=== PATIENT | male | born 1960 | race Caucasian/White ===

== ENCOUNTER 2016-12-24 09:38 | Day surgery (SDC) | payer OTHER, BC ==
[2016-12-24] MEDS ORDERED: D5 LR 1000 ML 1,000 ML IV ONE (09:53)
[2016-12-24] MEDS ORDERED: DIPRIVAN VIAL 20 ML ONE (11:04)
[2016-12-24 13:55] VITALS: BP 115/65
== END 2016-12-24 11:37 | disposition home or self-care (01) ==
LOC: SURG1 09:38
PROVIDERS: ATTEND Internal Medicine Gastroenterology
PROC: 0D757ZZ Dilation of Esophagus, Via Natural or Artificial Opening (ICD-10-PCS; principal; 2016-12-24 13:00)
PROC: 0DB88ZX Excision of Small Intestine, Via Natural or Artificial Opening Endoscopic, Diagnostic (ICD-10-PCS; principal; 2016-12-24 13:00)
PROC: 0DJ08ZZ Inspection of Upper Intestinal Tract, Via Natural or Artificial Opening Endoscopic (ICD-10-PCS; principal; 2016-12-24 13:00)
PROC: 0DB68ZX Excision of Stomach, Via Natural or Artificial Opening Endoscopic, Diagnostic (ICD-10-PCS; principal; 2016-12-24 13:00)
DX: R13.19 Other dysphagia (principal); K21.9 Gastro-esophageal reflux disease without esophagitis; K29.60 Other gastritis without bleeding; Z85.818 Personal history of malignant neoplasm of other sites of lip, oral cavity, and pharynx
CPT/HCPCS: A4217; J3490; J7120

== ENCOUNTER 2021-09-12 10:37 | Observation (INO) ==
[2021-09-12] MEDS ORDERED: NS 1,000 ML IV 1,000 ML IV ONE ×2 (11:17→13:51)
--- NOTE | 2021-09-12 11:17 | DR.GIBLEED ---
HPI Time Seen Time Seen by Provider: 09/12/21 11:04 Primary Care Physician Primary Care Physician: JACQUES HPI Comment HPI Comment: HAD CONONOSCO[PY YESTERDAY WITH POLYPS REMOVED. DEVELOPED BLEED FROM RECTUM 7 HOURS AGO AND CONTINUED PASSING CLOTS, HAS NOT CALLED DR MACIEL'S OFFIVE BEFORE COMING TO ER. IS ON BLOOD THINNERS AND DID NOT STOP USING THEM 4 DAYS PRIOR TO PROCEDURE. Complaints Chief Complaint:: DID COLONSCOPY ON PT AT [facility] YESTERDAY 09/11/21 AND REMOVED POLPYS.THIS MORNING AROUND 0200 PATIENT WENT TO [facility] AND TRIED TO HAVE BOWEL MOVENT AND FELT A CLOT COME OUT AND HAD SEVERAL DISCHARGE OF CLOTS. PATIENT STATES HE HAS HAD 8 MOVEMENTS OF PASSING BLOOD, NO STOOL NOTED EITHER TIMES. HAVE NOT CALLED 'S OFFICE THIS MORNING AND FOLLOW UP IS September. COVID-19 Coronavirus risk:travel/contact w/high risk person: No Has patient experienced Coronavirus symptoms: No Source History Provided: Patient Mode of Arrival Mode of Arrival: Ambulatory Timing Onset of Chief Complaint: 09/12/21 Quality Vomitus: None Stools: Bright Red Blood PMH PMH Past Medical History: Yes Past Medical History: Arthritis Past Medical History Comment: BLADDER CA,THROAT CA, Past Surgical History: Yes Surgical History: Cholecystectomy Past Surgical History Comment: [id number] Family History History of Family Medical Conditions: Yes Family Medical History: Cancer and Hypertension Social History Does patient currently use any type of tobacco product: No Have you used tobacco products in the last 12 months: No Type of Tobacco Use: None Does any household member use tobacco: No Alcohol Use: None Do you use any recreational Drugs:: No Lives With: Spouse Lives Where: Home Travel Risk Coronavirus risk:travel/contact w/high risk person: No Has patient experienced Coronavirus symptoms: No Infectious screening In the last 2 months have you had wt loss of >10#?: NO Have you had fever, night sweats or hemotysis?: No Have you traveled outside the country in the last 6 months?: No Isolation: Standard ROS Review of Systems Constitutional: Weakness Eyes: No Symptoms Reported ENTM: No Symptoms Reported Respiratoy: No Symptoms Reported Cardiovascular: No Symptoms Reported Gastrointestinal/Abdominal: No Symptoms Reported and Other (LOWER GI BLEEDING WITH CLOTTING ) Genitourinary: No Symptoms Reported Neurological: No Symptoms Reported Musculoskeletal: No Symptoms Reported Integumentary: No Symptoms Reported Hematologic/Lymphatic: No Symptoms Reported Endocrine: No Symptoms Reported Psychiatric: No Symptoms Reported All Other Systems: Reviewed and Negative PE Vital Signs Vitals: Pulse Rate 74 Respiratory Rate 18 Blood Pressure [Left Arm] 90/50 Blood Pressure 106/63 O2 Sat by Pulse Oximetry 99 General Limitations: No Limitations General Appearance: Alert and In No Apparent Distress Head Head Exam: Normal Inspection Eyes Eye exam: Normal Appearance ENT ENT Exam: Normal Exam Neck Neck Exam: Normal Inspection Chest Chest Inspection: Normal Inspection Respiratory Respiratory Exam: Normal Lung Sounds Bilat Respiratory Exam: Bilateral: Clear to Auscultation Cardiovascular Cardiovascular Exam: Regular Rate and Normal Rhythm Abdominal Exam Abdominal Exam: Normal Inspection, Normal Bowel Sounds and Soft Rectal Rectal Exam: Deferred Extremities Extremities Exam: Normal Inspection Back Back Exam: Normal Inspection Neurologic Neurological Exam: Alert and Oriented X3 Psychiatric Psychiatric Exam: Normal Affect and Normal Mood Skin Skin Exam: Warm, Dry, Intact and Normal Color DIFFERENTIAL DIAGNOSIS Additional Information Obtained Additional Findings:: LOWER GI BLEED COURSE Treatment Treatment: LOWER GI BLEED S/P COLONOSCOPY YESTERDAY,HYPOTENSION,POSITIVE FOR COVID 19 TODAY IN ER.THIS PATIENT WAS GIVEN ONE LITER BOLUS OF NACL IN ER AND WAS STARTED ON ANOTHER LITER BOLUS AFTER TALKING TO DR MACIEL(GI), HE WILL CONSULT ON THE PATIENTTODAY AND REQUESTED THAT WE REFER TO OBSERVATIION TO IP COUNSEL PHYSICIAN AND HE WILL BE IN LATER TO CONSULT ON THE PATIENT. HE STATED TO TYPE AND TRANS FUSE ONE UNIT OF PRBC'S IF HGB DROPS BELOW 9.6. THECK H/H [id number]. NACL AT 125CC/HR. CLEAR LIQUID DIET. SPOKE TO DR LONG THE IP COUNSEL DOCTER AND SHE ACCEPTED THE PATIENT TO OBSERVATION FOR LOWER GI BLEED. AND HYPOTENSION. PATIENT WAS TOLD OF THE PLAN TO REFER HIM TO OBSERVATION FOR FURTHER EVALUATION AND TREATMENT AND WAS AGGREABLE TO THE PLAN. ROR Labs Reviewed Laboratory Results Reviewed?: Yes Result Diagrams: 09/12/21 10:59 09/12/21 10:59 Laboratory: WBC 9.7 X10^3/uL (3.6-10.0) 09/12/21 10:59 RBC 3.94 X10^6/uL (4.7-6.0) L 09/12/21 10:59 Hgb 12.9 g/dL (13.5-18.0) L 09/12/21 10:59 Hct 37.0 % (42.0-54.0) L 09/12/21 10:59 MCV 93.9 fL (80.0-100.0) 09/12/21 10:59 MCH 32.7 pg (27.0-34.0) 09/12/21 10:59 MCHC 34.9 g/dL (33.0-35.0) 09/12/21 10:59 RDW 14.9 % (11.6-16.5) 09/12/21 10:59 Plt Count 189 X10^3/uL (150.0-450.0) 09/12/21 10:59 MPV 10.1 fL (7.4-11.0) 09/12/21 10:59 Neut % (Auto) 77.1 % (42.0-75.0) H 09/12/21 10:59 Lymph % (Auto) 12.2 % (21.0-51.0) L 09/12/21 10:59 [place] % (Auto) 8.5 % (0.0-13.0) 09/12/21 10:59 Eos % (Auto) 1.8 % (0.9-2.9) 09/12/21 10:59 Baso % (Auto) 0.4 % (0.2-1.0) 09/12/21 10:59 Neut # (Auto) 7.5 x10^3/uL (2.2-4.8) H 09/12/21 10:59 Lymph # (Auto) 1.2 X10^3/uL (1.3-2.9) L 09/12/21 10:59 [place] # (Auto) 0.8 x10^3/uL (0.3-0.8) 09/12/21 10:59 Eos # (Auto) 0.2 x10^3/uL (0.0-0.2) 09/12/21 10:59 Baso # (Auto) 0.0 X10^3/uL (0.0-0.1) 09/12/21 10:59 Absolute Nucleated RBC 0.1 /100WBC 09/12/21 10:59 PT 14.6 SECONDS (11.8-14.3) 09/12/21 10:59 INR Target Range - 09/12/21 10:59 INR 1.19 (0.8-1.3) 09/12/21 10:59 APTT 32.3 SECONDS (22.9-36.5) 09/12/21 10:59 PTT Comment - 09/12/21 10:59 Sodium 139 mmol/L (136-145) 09/12/21 10:59 Corrected Sodium TNP 09/12/21 10:59 Potassium 4.7 mmol/L (3.5-5.1) 09/12/21 10:59 Chloride 104 mmol/L (98-107) 09/12/21 10:59 Carbon Dioxide 27.1 mmol/L (21-32) 09/12/21 10:59 BUN 28 mg/dL (7-18) H 09/12/21 10:59 Creatinine 1.35 mg/dL (0.70-1.30) H 09/12/21 10:59 Est GFR (MDRD) Af Amer > 60 (>60) 09/12/21 10:59 Est GFR (MDRD) Non-Af 57 (>60) L 09/12/21 10:59 Glucose 107 mg/dL (65-99) H 09/12/21 10:59 Calcium 8.0 mg/dL (8.5-10.1) L 09/12/21 10:59 Corrected Calcium TNP 09/12/21 10:59 Total Bilirubin 0.70 mg/dL (0.2-1.0) 09/12/21 10:59 AST 19 Units/L (15-37) 09/12/21 10:59 ALT 30 Units/L (12-78) 09/12/21 10:59 Alkaline Phosphatase 74 Units/L (46-116) 09/12/21 10:59 Total Protein 5.9 g/dL (6.4-8.2) L 09/12/21 10:59 Albumin 3.6 g/dL (3.4-5.0) 09/12/21 10:59 Globulin 2.3 g/dL (2.5-4.5) L 09/12/21 10:59 Albumin/Globulin Ratio 1.6 Ratio (1.1-2.1) 09/12/21 10:59 Stool Description Fob tube 09/12/21 11:50 Stl Occult Blood (IFOB) Positive (NEGATIVE) A 09/12/21 11:50 SARS CoV-2 RNA Rapid JANNETH Positive (NEGATIVE) A 09/12/21 13:50 Blood Type A POSITIVE 09/12/21 14:19 Antibody Screen Negative 09/12/21 14:19 Crossmatch See Detail 09/12/21 14:19 Other Results Comments: HEME POSITIVE STOOL,POSITIVE COVID-19 Opioid Opioid Risk Tool Age ([place] box if 16-45): No History of Preadolescent Sexual Abuse: No Total: 0 Total Score Risk Category: Low Risk Copyright: Chandu HAYS predicting aberrant behaviors Diagnosis Discharge Problem: Gastrointestinal bleeding, lower Hypotension Qualifiers: Hypotension type: hemodialysis-associated hypotension Qualified Code(s): I95.3 - Hypotension of hemodialysis
[2021-09-12] MEDS ORDERED: NS 1,000 ML IV 1,000 ML ONE ×3 (11:27→14:43)
[2021-09-12 11:33] LABS: BASOPHILS % (AUTO) 0.4 % (0.2-1.0); EOSINOPHILS # (AUTO) 0.2 x10^3/uL (0.0-0.2); EOSINOPHILS % (AUTO) 1.8 % (0.9-2.9); HEMOGLOBIN 12.9 g/dL (13.5-18.0); LYMPHOCYTES # (AUTO) 1.2 X10^3/uL (1.3-2.9); LYMPHOCYTES % (AUTO) 12.2 % (21.0-51.0); MEAN CORPUSCULAR HEMOGLOBIN 32.7 pg (27.0-34.0); MEAN CORPUSCULAR HGB CONC 34.9 g/dL (33.0-35.0); MEAN CORPUSCULAR VOLUME 93.9 fL (80.0-100.0); MEAN PLATELET VOLUME 10.1 fL (7.4-11.0); MONOCYTES # (AUTO) 0.8 x10^3/uL (0.3-0.8); MONOCYTES % (AUTO) 8.5 % (0.0-13.0); NEUTROPHILS # (AUTO) 7.5 x10^3/uL (2.2-4.8); NEUTROPHILS % (AUTO) 77.1 % (42.0-75.0); RED BLOOD COUNT 3.94 X10^6/uL (4.7-6.0); RED CELL DISTRIBUTION WIDTH 14.9 % (11.6-16.5); WHITE BLOOD COUNT 9.7 X10^3/uL (3.6-10.0)
[2021-09-12 11:42] LABS: ALANINE AMINOTRANSFERASE 30 Units/L (12-78); ALBUMIN 3.6 g/dL (3.4-5.0); ALKALINE PHOSPHATASE 74 Units/L (46-116); ASPARTATE AMINO TRANSFERASE 19 Units/L (15-37); BLOOD UREA NITROGEN 28 mg/dL (7-18); CARBON DIOXIDE 27.1 mmol/L (21-32); CHLORIDE 104 mmol/L (98-107); CREATININE 1.35 mg/dL (0.70-1.30); SODIUM 139 mmol/L (136-145); TOTAL PROTEIN 5.9 g/dL (6.4-8.2); eGFR NON BLACK RACES 57 (>60)
[2021-09-12] MEDS ORDERED: NS 1,000 ML IV 1,000 ML IV SCH (15:00)
[2021-09-12] MEDS: NS 1,000 ML IV 1,000 ML IV SCH (16:20)
[2021-09-12 16:30] VITALS: BMI 29.7
[2021-09-12] MEDS ORDERED: METHOTREXATE PO SCH (17:00)
[2021-09-12 17:21] LABS: HEMOGLOBIN 9.4 g/dL (13.5-18.0)
[2021-09-12] MEDS ORDERED: NS 500 ML IV 500 ML IV ONE (17:30)
[2021-09-12] MEDS: PROTONIX INJ 40 MG VIAL IVP SCH (20:45)
[2021-09-12] MEDS: KEPPRA TAB 500 MG PO SCH (20:45)
[2021-09-12] MEDS: LIPITOR TAB 80 MG PO SCH (20:45)
[2021-09-12] MEDS: KLONOPIN TAB 1 MG PO SCH (20:45)
[2021-09-12] MEDS: GABAPENTIN ENACARBIL 300 MG PO SCH (20:45)
[2021-09-12] MEDS: COREG TAB 6.25 MG PO SCH (21:39)
[2021-09-12 21:44] LABS: HEMATOCRIT 24.7 % (42.0-54.0); HEMOGLOBIN 8.9 g/dL (13.5-18.0)
[2021-09-13] MEDS: NS 1,000 ML IV 1,000 ML IV SCH ×3 (01:00→16:43)
[2021-09-13] MEDS ORDERED: TYLENOL 325 MG TAB PO PRN (02:32)
[2021-09-13 03:17] LABS: BASOPHILS # (AUTO) 0.1 X10^3/uL (0.0-0.1); BASOPHILS % (AUTO) 0.5 % (0.2-1.0); EOSINOPHILS # (AUTO) 0.1 x10^3/uL (0.0-0.2); EOSINOPHILS % (AUTO) 0.7 % (0.9-2.9); HEMOGLOBIN 10.8 g/dL (13.5-18.0); LYMPHOCYTES # (AUTO) 0.8 X10^3/uL (1.3-2.9); LYMPHOCYTES % (AUTO) 7.4 % (21.0-51.0); MEAN CORPUSCULAR HEMOGLOBIN 31.5 pg (27.0-34.0); MEAN CORPUSCULAR HGB CONC 34.9 g/dL (33.0-35.0); MEAN CORPUSCULAR VOLUME 90.3 fL (80.0-100.0); MEAN PLATELET VOLUME 9.5 fL (7.4-11.0); MONOCYTES # (AUTO) 0.7 x10^3/uL (0.3-0.8); MONOCYTES % (AUTO) 6.7 % (0.0-13.0); NEUTROPHILS # (AUTO) 9.4 x10^3/uL (2.2-4.8); NEUTROPHILS % (AUTO) 84.7 % (42.0-75.0); RED BLOOD COUNT 3.43 X10^6/uL (4.7-6.0); WHITE BLOOD COUNT 11.1 X10^3/uL (3.6-10.0)
[2021-09-13 03:25] LABS: ALANINE AMINOTRANSFERASE 25 Units/L (12-78); ALKALINE PHOSPHATASE 58 Units/L (46-116); ASPARTATE AMINO TRANSFERASE 18 Units/L (15-37); BLOOD UREA NITROGEN 22 mg/dL (7-18); CALCIUM 7.3 mg/dL (8.5-10.1); CARBON DIOXIDE 26.2 mmol/L (21-32); CHLORIDE 109 mmol/L (98-107); COR CA(FOR HYPOALB) 8.1 mg/dL (8.5-10.1); CREATININE 1.08 mg/dL (0.70-1.30); SODIUM 142 mmol/L (136-145); eGFR NON BLACK RACES > 60 (>60)
--- NOTE | 2021-09-13 04:56 | CT ---
HISTORYGI BLEED; RECENT COLONOSCOPYSTUDYABDOMEN/PELVIS WITH CONCOMPARISONNoneTECHNIQUEMultiple axial images of the abdomen and pelvis were obtained from the lung bases to the pubic symphysis after the administration of IV contrast. Dose reduction techniques including Automated Exposure Control (AEC) and adjustment of mA and kV were utilized.FINDINGSThe visualized portions of the lung bases are unremarkable . The liver, spleen, pancreas, kidneys, and adrenal glands are unremarkable in their CT appearance. Post cholecystectomy changes.. No significant mesenteric lymphadenopathy or stranding can be observed. No free fluid or free air is seen within the abdomen. Normal appendix right lower quadrant. No bowel wall thickening or bowel dilatation is present. The colon is unremarkable. Specifically, there is no diverticulosis noted within the sigmoid colon. The urinary bladder is grossly unremarkable. The bony structures are grossly intact. Small fat containing umbilical hernia.IMPRESSIONSmall fat containing umbilical hernia.No acute abdominal or pelvic pathology.Electronically signed by: Bandar Kohler (Sep 13, 2021 04:55:24)
[2021-09-13] MEDS: COREG TAB 6.25 MG PO SCH ×3 (08:09→20:13)
[2021-09-13] MEDS: GABAPENTIN ENACARBIL 300 MG PO SCH ×2 (08:10→21:00)
[2021-09-13] MEDS: EFFEXOR TAB 75 MG (BID DOSING) PO SCH ×2 (08:30→08:42)
[2021-09-13] MEDS: PLAQUENIL PO SCH (08:42)
[2021-09-13] MEDS: FOLIC ACID TAB 1 MG PO SCH (08:42)
[2021-09-13] MEDS: KEPPRA TAB 500 MG PO SCH ×2 (08:42→21:00)
[2021-09-13] MEDS: PROTONIX INJ 40 MG VIAL IVP SCH ×2 (08:43→21:00)
[2021-09-13] MEDS: ROTIGOTINE EXT SCH (08:43)
[2021-09-13] MEDS: SYNTHROID 25 mcg TAB PO SCH (08:43)
[2021-09-13] MEDS ORDERED: PriLOSEC PO SCH (09:00)
[2021-09-13] MEDS ORDERED: HYDROXYCHLOROQUINE SULFATE PO SCH (09:00)
[2021-09-13] MEDS ORDERED: ASPIRIN 81 MG CHEWTAB PO SCH (09:00)
[2021-09-13 11:30] LABS: HEMATOCRIT 30.5 % (42.0-54.0); HEMOGLOBIN 10.8 g/dL (13.5-18.0)
--- NOTE | 2021-09-13 11:38 | DR.H&P ---
H&P History & Physical for Day of: H&P Date: 09/13/21 Chief Complaint Chief Complaint: rectal bleeding Allergies Allergies Allergy/AdvReac Type Severity Reaction Status Date / Time No Known Drug Allergies Allergy Verified 09/12/21 20:54 History of Present Illness History of Present Illness: Mr Morales is a 61y/o male with a hx of CAD, PCI, bladder cancer, Oropharyngeal cancer, HTN, HLD and Psoriatic arthritis presented with blood in his stool. He had a colonoscopy on 09/11/[address] Du. He was found to have internal hemorrrhoids and polyp. Patietn states he started having bloody BMs later that night. He came to the ER the next morning. He denies abdominal pain, nausea or vomiting. He denies fever or chills. He had 2 bloody stools this AM. Patient is on Brilinta and asa, reports stopping it 4 days prior to procedure. He is fully vaccinated for Covid-19. No prev hx of infection. ER work up - Labs: Hgb 12.9 - COVID-19 + GI was consulted in the ER, Dr Du's [employer] CHECKER did see the patient in the evening and recommended to monitor H/H. Patient's hgb did drop and he was given 1 unit of PRBCs, Hgb 8.9 after transfusion. He did receive one more unit overnight. Hgb 10.8 this morning. Patient's BP has been low since admission, currently on NS @ 125cc/hr. - CTAP: no acute process - FOBT + Plan: monitor H/H, transfuse if less than 9. Continue hydration with NS. Advance diet to full liquids. Continue IV protonix. Continue home medications. Continue to hold asa and Brilinta due to GI bleed. Monitor H/H, monitor AM labs. Past Medical History Past Medical History: Arthritis, Coronary Artery Disease and Hypertension Additional Medical History: Oropharyngeal cancer Bladder cancer Past Surgical History Surgical History: Cholecystectomy Additional Surgical History: Neck surgery PCI Family History Family Medical History: Cancer and Hypertension Social History Does patient currently use any type of tobacco product: No Have you used tobacco products in the last 12 months: No Type of Tobacco Use: None Does any household member use tobacco: No Alcohol Use: None Prescription drug monitoring program results: PDMP reviewed and no concerns identified Medications Home Medications: No Known Drug Allergies Allergy (Verified 09/12/21 20:54) CONTINUE taking the following medications aspirin 81 mg PO DAILY 09/12/21 [History] atorvastatin 80 mg PO HS 09/12/21 [History] carvedilol 6.25 mg PO BID 09/12/21 [History] clonazepam 1.5 mg PO HS 09/12/21 [History] gabapentin enacarbil [Horizant] 300 mg PO BID 09/12/21 [History] levetiracetam 1,000 mg PO BID 09/12/21 [History] levothyroxine 25 mcg PO DAILY 09/12/21 [History] methotrexate sodium 25 mg PO WEEKLY 09/12/21 [History] omeprazole 20 mg PO DAILY 09/12/21 [History] ticagrelor [Brilinta] 60 mg PO BID 09/12/21 [History] venlafaxine 75 mg PO DAILY 09/12/21 [History] Labs Result Diagrams: 09/13/21 11:10 09/13/21 03:00 Labs: Laboratory WBC 11.1 X10^3/uL (3.6-10.0) H 09/13/21 03:00 RBC 3.43 X10^6/uL (4.7-6.0) L 09/13/21 03:00 Hgb 10.8 g/dL (13.5-18.0) L 09/13/21 03:00 Hct 31.0 % (42.0-54.0) L 09/13/21 03:00 MCV 90.3 fL (80.0-100.0) 09/13/21 03:00 MCH 31.5 pg (27.0-34.0) 09/13/21 03:00 MCHC 34.9 g/dL (33.0-35.0) 09/13/21 03:00 RDW 16.0 % (11.6-16.5) 09/13/21 03:00 Plt Count 112 X10^3/uL (150.0-450.0) L 09/13/21 03:00 MPV 9.5 fL (7.4-11.0) 09/13/21 03:00 Neut % (Auto) 84.7 % (42.0-75.0) H 09/13/21 03:00 Lymph % (Auto) 7.4 % (21.0-51.0) L 09/13/21 03:00 [place] % (Auto) 6.7 % (0.0-13.0) 09/13/21 03:00 Eos % (Auto) 0.7 % (0.9-2.9) L 09/13/21 03:00 Baso % (Auto) 0.5 % (0.2-1.0) 09/13/21 03:00 Neut # (Auto) 9.4 x10^3/uL (2.2-4.8) H 09/13/21 03:00 Lymph # (Auto) 0.8 X10^3/uL (1.3-2.9) L 09/13/21 03:00 [place] # (Auto) 0.7 x10^3/uL (0.3-0.8) 09/13/21 03:00 Eos # (Auto) 0.1 x10^3/uL (0.0-0.2) 09/13/21 03:00 Baso # (Auto) 0.1 X10^3/uL (0.0-0.1) 09/13/21 03:00 Absolute Nucleated RBC 0.1 /100WBC 09/13/21 03:00 PT 14.6 SECONDS (11.8-14.3) 09/12/21 10:59 INR Target Range - 09/12/21 10:59 INR 1.19 (0.8-1.3) 09/12/21 10:59 APTT 32.3 SECONDS (22.9-36.5) 09/12/21 10:59 PTT Comment - 09/12/21 10:59 Sodium 142 mmol/L (136-145) 09/13/21 03:00 Corrected Sodium TNP 09/13/21 03:00 Potassium 4.1 mmol/L (3.5-5.1) 09/13/21 03:00 Chloride 109 mmol/L (98-107) H 09/13/21 03:00 Carbon Dioxide 26.2 mmol/L (21-32) 09/13/21 03:00 BUN 22 mg/dL (7-18) H 09/13/21 03:00 Creatinine 1.08 mg/dL (0.70-1.30) 09/13/21 03:00 Est GFR (MDRD) Af Amer > 60 (>60) 09/13/21 03:00 Est GFR (MDRD) Non-Af > 60 (>60) 09/13/21 03:00 Glucose 83 mg/dL (65-99) 09/13/21 03:00 Calcium 7.3 mg/dL (8.5-10.1) L 09/13/21 03:00 Corrected Calcium 8.1 mg/dL (8.5-10.1) L 09/13/21 03:00 Total Bilirubin 0.90 mg/dL (0.2-1.0) 09/13/21 03:00 AST 18 Units/L (15-37) 09/13/21 03:00 ALT 25 Units/L (12-78) 09/13/21 03:00 Alkaline Phosphatase 58 Units/L (46-116) 09/13/21 03:00 Total Protein 5.0 g/dL (6.4-8.2) L 09/13/21 03:00 Albumin 3.0 g/dL (3.4-5.0) L 09/13/21 03:00 Globulin 2.0 g/dL (2.5-4.5) L 09/13/21 03:00 Albumin/Globulin Ratio 1.5 Ratio (1.1-2.1) 09/13/21 03:00 Stool Description Fob tube 09/12/21 11:50 Stl Occult Blood (IFOB) Positive (NEGATIVE) A 09/12/21 11:50 SARS CoV-2 RNA Rapid JANNETH Positive (NEGATIVE) A 09/12/21 13:50 Blood Type A POSITIVE 09/12/21 14:19 Antibody Screen Negative 09/12/21 14:19 Crossmatch See Detail 09/12/21 14:19 Review of Systems Constitutional: Weakness Eyes: No Symptoms Reported ENT: No Symptoms Reported Respiratory: No Symptoms Reported Cardiovascular: No Symptoms Reported Gastrointestinal: Melena and Hematochezia Genitourinary: No Symptoms Reported Musculoskeletal: Back Pain Skin: No Symptoms Reported Neurological: No Symptoms Reported Physical Exam Vital Signs: Temperature 98.2 F Pulse Rate 67 Respiratory Rate 17 Blood Pressure [Left Arm] 90/50 Blood Pressure 93/51 O2 Sat by Pulse Oximetry 99 Oriented: Normal Eyes: Normal Ear: Normal Nose: Normal Throat: Normal Respiratory: Clear Throughout Cardiovascular: Normal Auscultation: Bowel Sounds: Normal Palpation: Normal Tenderness: Normal Skin: Normal Musculoskeletal: Back:Thoracic and Back:Lumbar Psychiatric: Normal Mood Description: Calm Affect: Normal Speech Pattern: Clear and Appropriate Assessment/Plan (1) Acute blood loss anemia: Status: Acute (2) Gastrointestinal bleeding, lower: Status: Acute (3) Hypotension: Qualifiers: Hypotension type: hemodialysis-associated hypotension Qualified Code(s): I95.3 - Hypotension of hemodialysis Status: Acute (4) ELBERT (acute kidney injury): Status: Acute (5) Generalized weakness: Status: Acute (6) Dehydration: Status: Acute (7) HLD (hyperlipidemia): Qualifiers: Hyperlipidemia type: unspecified Qualified Code(s): E78.5 - Hyperlipidemia, unspecified Status: Acute (8) CAD (coronary artery disease): Qualifiers: Associated angina: without angina Coronary Disease-Associated Artery/Lesion type: unspecified vessel or lesion type [place] vs. transplanted heart: [place] heart Qualified Code(s): I25.10 - Atherosclerotic heart disease of [place] coronary artery without angina pectoris Status: Acute (9) Bladder cancer: Qualifiers: Bladder location: unspecified site Qualified Code(s): C67.9 - Malignant neoplasm of bladder, unspecified Status: Acute Review H&P Reviewed: Yes Patient was examined?: Yes
--- NOTE | 2021-09-13 12:31 | DR.CONSULT ---
<Crystal Armstrong - Last Filed: 09/13/21 12:27> Consult - Consultation for Day of: Date: 09/12/20 - Chief Complaint Chief Complaint: Patient referred for GI Bleed. Patient seen today and has complaints of hematochezia - Allergies Allergies/Adverse Reactions: Allergies Allergy/AdvReac Type Severity Reaction Status Date / Time No Known Drug Allergies Allergy Verified 09/12/21 20:54 - History of Present Illness History of Present Illness: Patient is a 61 yo male who was referred for GI Bleed. Patient seen today and has complaints of hematochezia that started at 2am, pateint states he felt very faint when this started, and is continuing to have bleeding. Patient s/p colonoscopy on 09/11/21 with 1.1cm polyp removed in cecum. Hgb 12.9, Hct 37.0, Plt 189, BUN 28, Creatinine 1.35, T. Bili 0.7, AST 19, ALT 30, ALP 74, INR 1.19, Hemoccult positive and covid postive. - Past Medical History Past Medical History: Coronary Artery Disease, Hypertension, Arthritis Additional Medical History: Oropharyngeal cancer. Bladder cancer - Past Surgical History Surgical History: Cholecystectomy Additional Surgical History: Neck surgery. PCI - Family History Family Medical History: Cancer, Hypertension - Social History Does patient currently use any type of tobacco product: No Have you used tobacco products in the last 12 months: No Type of Tobacco Use: None Does any household member use tobacco: No Alcohol Use: None - Medications Home Medications: No Known Drug Allergies Allergy (Verified 09/12/21 20:54) CONTINUE taking the following medications aspirin 81 mg PO DAILY 09/12/21 [History] atorvastatin 80 mg PO HS 09/12/21 [History] carvedilol 6.25 mg PO BID 09/12/21 [History] clonazepam 1.5 mg PO HS 09/12/21 [History] gabapentin enacarbil [Horizant] 300 mg PO BID 09/12/21 [History] levetiracetam 1,000 mg PO BID 09/12/21 [History] levothyroxine 25 mcg PO DAILY 09/12/21 [History] methotrexate sodium 25 mg PO WEEKLY 09/12/21 [History] omeprazole 20 mg PO DAILY 09/12/21 [History] ticagrelor [Brilinta] 60 mg PO BID 09/12/21 [History] venlafaxine 75 mg PO DAILY 09/12/21 [History] - Review of Systems Gastrointestinal: Hematochezia. denies: Nausea, Vomiting, Abdominal Pain, Diarrhea, Constipation, Melena, Other - Physical Exam Vital Signs: Temperature 98.2 F Pulse Rate 67 Respiratory Rate 17 Blood Pressure [Left Arm] 90/50 Blood Pressure 93/51 O2 Sat by Pulse Oximetry 99 Oriented: Normal Eyes: Normal Ear: Normal Nose: Normal Throat: Normal Respiratory: Clear Throughout Cardiovascular: Normal Auscultation: Bowel Sounds: Normal Palpation: Normal. negative: Spleen Enlarged, Liver Enlarged, Mass Pulsatile Tenderness: Normal (non tender) Skin: Normal Musculoskeletal: Normal Psychiatric: Normal Mood Description: Calm Affect: Normal Speech Pattern: Clear, Appropriate - Plan Plan: Assessment. 1. Anemia, GI Bleed, Hematochezia likely secondary to post polypectomy bleed. Plan. 1. Monitor Hgb q 6hr, Transfuse if Hgb drops below 9, for continued drop in Hgb and active bleeding may need to be transferred to tertiary care facility where intervention is avaliable. Plan reviewed with Dr. Du <FIGUEROA DU - Last Filed: 09/13/21 16:21> Consult - Medications Home Medications: No Known Drug Allergies Allergy (Verified 09/12/21 20:54) CONTINUE taking the following medications aspirin 81 mg PO DAILY 09/12/21 [History] atorvastatin 80 mg PO HS 09/12/21 [History] carvedilol 6.25 mg PO BID 09/12/21 [History] clonazepam 1.5 mg PO HS 09/12/21 [History] gabapentin enacarbil [Horizant] 300 mg PO BID 09/12/21 [History] levetiracetam 1,000 mg PO BID 09/12/21 [History] levothyroxine 25 mcg PO DAILY 09/12/21 [History] methotrexate sodium 25 mg PO WEEKLY 09/12/21 [History] omeprazole 20 mg PO DAILY 09/12/21 [History] ticagrelor [Brilinta] 60 mg PO BID 09/12/21 [History] venlafaxine 75 mg PO DAILY 09/12/21 [History] - Review of Systems Constitutional: Weakness Cardiovascular: Light Headedness - Physical Exam Vital Signs: Temperature 98.1 F Pulse Rate 68 Respiratory Rate 13 Blood Pressure [Left Arm] 90/50 Blood Pressure 98/54 O2 Sat by Pulse Oximetry 100
[2021-09-13 18:17] LABS: HEMATOCRIT 28.2 % (42.0-54.0); HEMOGLOBIN 9.9 g/dL (13.5-18.0)
[2021-09-13] MEDS ORDERED: NS 500 ML IV 500 ML IV ONE (18:20)
[2021-09-13] MEDS: LIPITOR TAB 80 MG PO SCH (20:14)
[2021-09-13] MEDS: KLONOPIN TAB 1 MG PO SCH (20:14)
[2021-09-14] MEDS: NS 1,000 ML IV 1,000 ML IV SCH ×2 (04:59→11:37)
[2021-09-14 05:24] LABS: BASOPHILS % (AUTO) 0.5 % (0.2-1.0); EOSINOPHILS # (AUTO) 0.2 x10^3/uL (0.0-0.2); EOSINOPHILS % (AUTO) 4.2 % (0.9-2.9); HEMATOCRIT 25.5 % (42.0-54.0); HEMOGLOBIN 8.7 g/dL (13.5-18.0); LYMPHOCYTES # (AUTO) 0.7 X10^3/uL (1.3-2.9); LYMPHOCYTES % (AUTO) 16.4 % (21.0-51.0); MEAN CORPUSCULAR HEMOGLOBIN 31.1 pg (27.0-34.0); MEAN CORPUSCULAR HGB CONC 34.3 g/dL (33.0-35.0); MEAN CORPUSCULAR VOLUME 90.8 fL (80.0-100.0); MEAN PLATELET VOLUME 10.1 fL (7.4-11.0); MONOCYTES # (AUTO) 0.5 x10^3/uL (0.3-0.8); MONOCYTES % (AUTO) 12.3 % (0.0-13.0); NEUTROPHILS # (AUTO) 2.7 x10^3/uL (2.2-4.8); NEUTROPHILS % (AUTO) 66.6 % (42.0-75.0); RED CELL DISTRIBUTION WIDTH 16.7 % (11.6-16.5); WHITE BLOOD COUNT 4.1 X10^3/uL (3.6-10.0)
[2021-09-14 06:25] LABS: ALANINE AMINOTRANSFERASE 22 Units/L (12-78); ALBUMIN 2.6 g/dL (3.4-5.0); ALKALINE PHOSPHATASE 50 Units/L (46-116); ASPARTATE AMINO TRANSFERASE 14 Units/L (15-37); BLOOD UREA NITROGEN 10 mg/dL (7-18); CALCIUM 7.2 mg/dL (8.5-10.1); CARBON DIOXIDE 28.7 mmol/L (21-32); CHLORIDE 113 mmol/L (98-107); COR CA(FOR HYPOALB) 8.3 mg/dL (8.5-10.1); CREATININE 0.96 mg/dL (0.70-1.30); SODIUM 146 mmol/L (136-145); TOTAL PROTEIN 4.4 g/dL (6.4-8.2); eGFR NON BLACK RACES > 60 (>60)
[2021-09-14] MEDS: COREG TAB 6.25 MG PO SCH (08:25)
[2021-09-14] MEDS: EFFEXOR TAB 75 MG (BID DOSING) PO SCH (08:26)
[2021-09-14] MEDS: KEPPRA TAB 500 MG PO SCH ×2 (08:27→20:44)
[2021-09-14] MEDS: FOLIC ACID TAB 1 MG PO SCH (08:27)
[2021-09-14] MEDS: GABAPENTIN ENACARBIL 300 MG PO SCH ×2 (08:27→20:44)
[2021-09-14] MEDS: PLAQUENIL PO SCH (08:28)
[2021-09-14] MEDS: PROTONIX INJ 40 MG VIAL IVP SCH ×2 (08:29→20:44)
[2021-09-14] MEDS: SYNTHROID 25 mcg TAB PO SCH (08:29)
[2021-09-14] MEDS: ROTIGOTINE EXT SCH (08:29)
--- NOTE | 2021-09-14 11:36 | PCM.PROG ---
Progress Note Progress Note for Day of Date of Exam: 09/14/21 Subjective Subjective: Patient seen at bedside, no acute events overnight. He reports last BM with blood was yesterday morning. He feels fine, denies N/V or abdominal pain. His BP remains low, denies dizziness. He states his weakness is a lot better. He has good appetite and would like his diet advanced. Hgb this AM 8.7. Patient has received 2 units PRBCs since admission. Labs reviewed Plan: continue to monitor H/H, if Hgb < 8 then will transfuse PRBCs. Continue hydration, will switch to LR at 100cc/hr. Advance diet to cardiac diet. Will hold coreg for this evening due to hypotension. Patient has no respiratory symptoms, remains on room air. Continue to hold asa and brilinta. Monitor AM labs/imaging. Past Medical Family Social History Past Med/Fam/Surg Hx: No changes since H&P Allergies: Allergies No Known Drug Allergies Allergy (Verified 09/12/21 20:54) Review of Systems ROS: No change since H&P Vital Signs and I&O's Vital Signs: Temperature 98.2 F Pulse Rate 69 Respiratory Rate 17 Blood Pressure [Left Arm] 90/50 Blood Pressure 99/56 O2 Sat by Pulse Oximetry 100 Intake and Output: Intake & Output 09/11/21 09/12/21 09/13/21 09/14/21 23:59 23:59 23:59 23:59 Intake Total 1140 / 1140 5260 / 5260 1350 / 1350 Output Total 800 / 800 2500 / 2500 Balance 340 / 340 5260 / 5260 -1150 / -1150 Physical Exam Oriented: Normal Eyes: Normal Ear: Normal Nose: Normal Throat: Normal Respiratory: Normal Cardiovascular: Normal Auscultation: Bowel Sounds: Normal Tenderness: Normal (non tender) Skin: Normal Musculoskeletal: Normal Psychiatric: Normal Mood Description: Calm Affect: Normal Speech Pattern: Clear Laboratory and Diagnostics Result Diagrams: 09/14/21 04:31 09/14/21 04:31 Labs: Laboratory WBC 4.1 X10^3/uL (3.6-10.0) 09/14/21 04:31 RBC 2.80 X10^6/uL (4.7-6.0) L 09/14/21 04:31 Hgb 8.7 g/dL (13.5-18.0) L 09/14/21 04:31 Hct 25.5 % (42.0-54.0) L 09/14/21 04:31 MCV 90.8 fL (80.0-100.0) 09/14/21 04:31 MCH 31.1 pg (27.0-34.0) 09/14/21 04:31 MCHC 34.3 g/dL (33.0-35.0) 09/14/21 04:31 RDW 16.7 % (11.6-16.5) H 09/14/21 04:31 Plt Count 90 X10^3/uL (150.0-450.0) L 09/14/21 04:31 MPV 10.1 fL (7.4-11.0) 09/14/21 04:31 Neut % (Auto) 66.6 % (42.0-75.0) 09/14/21 04:31 Lymph % (Auto) 16.4 % (21.0-51.0) L 09/14/21 04:31 [place] % (Auto) 12.3 % (0.0-13.0) 09/14/21 04:31 Eos % (Auto) 4.2 % (0.9-2.9) H 09/14/21 04:31 Baso % (Auto) 0.5 % (0.2-1.0) 09/14/21 04:31 Neut # (Auto) 2.7 x10^3/uL (2.2-4.8) 09/14/21 04:31 Lymph # (Auto) 0.7 X10^3/uL (1.3-2.9) L 09/14/21 04:31 [place] # (Auto) 0.5 x10^3/uL (0.3-0.8) 09/14/21 04:31 Eos # (Auto) 0.2 x10^3/uL (0.0-0.2) 09/14/21 04:31 Baso # (Auto) 0.0 X10^3/uL (0.0-0.1) 09/14/21 04:31 Absolute Nucleated RBC 0.2 /100WBC 09/14/21 04:31 PT 14.6 SECONDS (11.8-14.3) 09/12/21 10:59 INR Target Range - 09/12/21 10:59 INR 1.19 (0.8-1.3) 09/12/21 10:59 APTT 32.3 SECONDS (22.9-36.5) 09/12/21 10:59 PTT Comment - 09/12/21 10:59 Sodium 146 mmol/L (136-145) H 09/14/21 04:31 Corrected Sodium TNP 09/14/21 04:31 Potassium 3.5 mmol/L (3.5-5.1) 09/14/21 04:31 Chloride 113 mmol/L (98-107) H 09/14/21 04:31 Carbon Dioxide 28.7 mmol/L (21-32) 09/14/21 04:31 BUN 10 mg/dL (7-18) 09/14/21 04:31 Creatinine 0.96 mg/dL (0.70-1.30) 09/14/21 04:31 Est GFR (MDRD) Af Amer > 60 (>60) 09/14/21 04:31 Est GFR (MDRD) Non-Af > 60 (>60) 09/14/21 04:31 Glucose 97 mg/dL (65-99) 09/14/21 04:31 Calcium 7.2 mg/dL (8.5-10.1) L 09/14/21 04:31 Corrected Calcium 8.3 mg/dL (8.5-10.1) L 09/14/21 04:31 Total Bilirubin 0.30 mg/dL (0.2-1.0) 09/14/21 04:31 AST 14 Units/L (15-37) L 09/14/21 04:31 ALT 22 Units/L (12-78) 09/14/21 04:31 Alkaline Phosphatase 50 Units/L (46-116) 09/14/21 04:31 Total Protein 4.4 g/dL (6.4-8.2) L 09/14/21 04:31 Albumin 2.6 g/dL (3.4-5.0) L 09/14/21 04:31 Globulin 1.8 g/dL (2.5-4.5) L 09/14/21 04:31 Albumin/Globulin Ratio 1.4 Ratio (1.1-2.1) 09/14/21 04:31 Stool Description Fob tube 09/12/21 11:50 Stl Occult Blood (IFOB) Positive (NEGATIVE) A 09/12/21 11:50 SARS CoV-2 RNA Rapid JANNETH Positive (NEGATIVE) A 09/12/21 13:50 Blood Type A POSITIVE 09/12/21 14:19 Antibody Screen Negative 09/12/21 14:19 Crossmatch See Detail 09/12/21 14:19 Plan (1) Acute blood loss anemia: Status: Acute (2) Gastrointestinal bleeding, lower: Status: Acute (3) Hypotension: Status: Acute Qualifiers: Hypotension type: hemodialysis-associated hypotension Qualified Code(s): I95.3 - Hypotension of hemodialysis (4) ELBERT (acute kidney injury): Status: Acute (5) Generalized weakness: Status: Acute (6) Dehydration: Status: Acute (7) HLD (hyperlipidemia): Status: Acute Qualifiers: Hyperlipidemia type: unspecified Qualified Code(s): E78.5 - Hyperlipidemia, unspecified (8) CAD (coronary artery disease): Status: Acute Qualifiers: Associated angina: without angina Coronary Disease-Associated Artery/Lesion type: unspecified vessel or lesion type [place] vs. transplanted heart: [place] heart Qualified Code(s): I25.10 - Atherosclerotic heart disease of [place] coronary artery without angina pectoris (9) Bladder cancer: Status: Acute Qualifiers: Bladder location: unspecified site Qualified Code(s): C67.9 - Malignant neoplasm of bladder, unspecified
[2021-09-14] MEDS: LR 1,000 ML IV 1,000 ML IV SCH ×2 (11:58→19:42)
[2021-09-14 17:04] LABS: HEMATOCRIT 25.6 % (42.0-54.0); HEMOGLOBIN 8.9 g/dL (13.5-18.0)
[2021-09-14] MEDS: LIPITOR TAB 80 MG PO SCH (20:44)
[2021-09-14] MEDS: KLONOPIN TAB 1 MG PO SCH (20:45)
[2021-09-15] MEDS: LR 1,000 ML IV 1,000 ML IV SCH ×2 (03:59→15:47)
[2021-09-15 05:39] LABS: BASOPHILS % (AUTO) 0.8 % (0.2-1.0); EOSINOPHILS # (AUTO) 0.2 x10^3/uL (0.0-0.2); EOSINOPHILS % (AUTO) 3.9 % (0.9-2.9); HEMATOCRIT 24.1 % (42.0-54.0); HEMOGLOBIN 8.4 g/dL (13.5-18.0); LYMPHOCYTES # (AUTO) 0.6 X10^3/uL (1.3-2.9); LYMPHOCYTES % (AUTO) 14.2 % (21.0-51.0); MEAN CORPUSCULAR HEMOGLOBIN 31.8 pg (27.0-34.0); MEAN CORPUSCULAR VOLUME 90.8 fL (80.0-100.0); MEAN PLATELET VOLUME 10.6 fL (7.4-11.0); MONOCYTES # (AUTO) 0.5 x10^3/uL (0.3-0.8); MONOCYTES % (AUTO) 11.4 % (0.0-13.0); NEUTROPHILS # (AUTO) 2.9 x10^3/uL (2.2-4.8); NEUTROPHILS % (AUTO) 69.7 % (42.0-75.0); RED BLOOD COUNT 2.66 X10^6/uL (4.7-6.0); RED CELL DISTRIBUTION WIDTH 16.2 % (11.6-16.5); WHITE BLOOD COUNT 4.2 X10^3/uL (3.6-10.0)
[2021-09-15 05:47] LABS: ALANINE AMINOTRANSFERASE 20 Units/L (12-78); ALBUMIN 2.7 g/dL (3.4-5.0); ALKALINE PHOSPHATASE 52 Units/L (46-116); ASPARTATE AMINO TRANSFERASE 18 Units/L (15-37); BLOOD UREA NITROGEN 6 mg/dL (7-18); CALCIUM 7.4 mg/dL (8.5-10.1); CHLORIDE 108 mmol/L (98-107); COR CA(FOR HYPOALB) 8.4 mg/dL (8.5-10.1); CREATININE 1.02 mg/dL (0.70-1.30); SODIUM 144 mmol/L (136-145); TOTAL PROTEIN 4.4 g/dL (6.4-8.2); eGFR NON BLACK RACES > 60 (>60)
[2021-09-15] MEDS ORDERED: POTASSIUM CHL 60 MEQ/NS 0.45% 500 ML IV PRN (06:00)
[2021-09-15] MEDS ORDERED: POTASSIUM CHLORIDE LIQ 20 MEQ UDC PO PRN (06:00)
[2021-09-15] MEDS ORDERED: POTASSIUM CHL 40 MEQ/NS 0.45% 500 ML IV PRN (06:00)
[2021-09-15] MEDS ORDERED: MICRO K EXTEN CAP 10 MEQ PO PRN (06:00)
[2021-09-15] MEDS ORDERED: K-RIDER 10 MEQ/NS 100 ML 10 MEQ/100 ML BAG IV PRN (06:00)
[2021-09-15] MEDS ORDERED: K-DUR TAB 20 MEQ PO PRN (06:00)
[2021-09-15] MEDS ORDERED: KLOR-CON PO PRN (06:00)
[2021-09-15] MEDS: MAGNESIUM SULFATE 1 GRAM/100 mL PREMIX 1 G/100 ML BAG IV PRN ×2 (08:00→09:50)
[2021-09-15] MEDS: FOLIC ACID TAB 1 MG PO SCH (08:34)
[2021-09-15] MEDS: GABAPENTIN ENACARBIL 300 MG PO SCH (08:34)
[2021-09-15] MEDS: KEPPRA TAB 500 MG PO SCH (08:34)
[2021-09-15] MEDS: EFFEXOR TAB 75 MG (BID DOSING) PO SCH (08:34)
[2021-09-15] MEDS: ROTIGOTINE EXT SCH (08:35)
[2021-09-15] MEDS: PLAQUENIL PO SCH (08:35)
[2021-09-15] MEDS: PROTONIX INJ 40 MG VIAL IVP SCH (08:35)
[2021-09-15] MEDS: SYNTHROID 25 mcg TAB PO SCH (08:35)
[2021-09-15] MEDS ORDERED: K-DUR TAB 20 MEQ PO ONE (11:14)
[2021-09-15 15:02] VITALS: BP 96/52
[2021-09-15 15:19] LABS: HEMATOCRIT 25.5 % (42.0-54.0); HEMOGLOBIN 9.1 g/dL (13.5-18.0)
--- NOTE | 2021-09-15 15:32 | W.DIS.FURT ---
Summary of Discharge Discharge Summary of Date Date of Exam: 09/15/21 Admission Date Date of Admission: 09/12/21 Admission Diagnosis Patient Problems (Updated 09/29/21 @ 09:16 by Vanna Burns) Gastrointestinal bleeding, lower (Acute) K92.2 Hypotension (Acute) I95.9 Hospital Course: Mr Morales is a 61y/o male with a hx of CAD, PCI, bladder cancer, Oropharyngeal cancer, HTN, HLD and Psoriatic arthritis presented with blood in his stool. He had a colonoscopy on 09/11/[address] Du. He was found to have internal hemorrrhoids and polyp. Patietn states he started having bloody BMs later that night. He came to the ER the next morning. He denies abdominal pain, nausea or vomiting. He denies fever or chills. He had 2 bloody stools this AM. Patient is on Brilinta and asa, reports stopping it 4 days prior to procedure. He is fully vaccinated for Covid-19. No prev hx of infection. In the ER, Hgb was 12.9. Patient was found to be COVID +. Dr Du was consulted and recommended to monitor H/H and transfuse as needed. Patient was admitted in ICU due to positive COVID test. He did not have any respiratory symptoms. He was started on gentle hydration and IV protonix. His H/H was monitored closely. He received 2 units of PRBCs. His diet was advanced as tolerated. His home meds asa and brilinta were held. CTAP was also done which did not show any acute process. His BM's did slow down and eventually stop. He was not having any more active bleeding. He was tolerating PO intake, ambulating in the room. He was ready for discharge. His Hgb prior to discharge was 9.1. He will f/u with GI and PCP as scheduled. He will continues to hold asa and brilinta for total of 2 weeks. Vital Signs: Vital Signs (72 hours) 09/12/21 15:45 09/12/21 16:07 09/12/21 16:08 Temperature 98.4 F Pulse Rate 72 72 72 Respiratory Rate 13 Blood Pressure 93/51 102/58 O2 Sat by Pulse Oximetry 99 99 09/12/21 16:15 09/12/21 16:30 09/12/21 16:45 Temperature Pulse Rate 72 72 73 Respiratory Rate 14 15 37 H Blood Pressure 97/53 O2 Sat by Pulse Oximetry 99 100 100 09/12/21 17:00 09/12/21 17:15 09/12/21 17:30 Temperature Pulse Rate 70 71 72 Respiratory Rate 15 20 16 Blood Pressure 83/50 85/53 O2 Sat by Pulse Oximetry 99 100 100 09/12/21 17:45 09/12/21 17:46 09/12/21 18:00 Temperature Pulse Rate 71 69 70 Respiratory Rate 19 19 17 Blood Pressure 78/48 89/55 111/56 O2 Sat by Pulse Oximetry 100 100 99 09/12/21 18:09 09/12/21 18:15 09/12/21 18:30 Temperature Pulse Rate 71 72 74 Respiratory Rate 22 13 20 Blood Pressure 93/49 88/41 O2 Sat by Pulse Oximetry 97 97 99 09/12/21 18:41 09/12/21 18:45 09/12/21 19:04 Temperature Pulse Rate 75 75 81 Respiratory Rate 15 38 H 24 Blood Pressure 96/40 O2 Sat by Pulse Oximetry 96 99 09/12/21 19:08 09/12/21 19:15 09/12/21 19:30 Temperature Pulse Rate 77 78 71 Respiratory Rate 34 H 16 18 Blood Pressure 106/56 O2 Sat by Pulse Oximetry 94 L 96 09/12/21 19:45 09/12/21 20:00 09/12/21 20:07 Temperature Pulse Rate 72 69 70 Respiratory Rate 19 22 20 Blood Pressure 108/74 O2 Sat by Pulse Oximetry 95 94 L 95 09/12/21 20:15 09/12/21 20:30 09/12/21 20:45 Temperature Pulse Rate 70 71 69 Respiratory Rate 22 22 16 Blood Pressure 92/53 O2 Sat by Pulse Oximetry 93 L 94 L 98 09/12/21 21:00 09/12/21 21:10 09/12/21 21:15 Temperature Pulse Rate 68 70 69 Respiratory Rate 14 19 24 Blood Pressure 83/53 89/53 O2 Sat by Pulse Oximetry 98 96 99 09/12/21 21:30 09/12/21 21:45 09/12/21 22:00 Temperature Pulse Rate 72 73 71 Respiratory Rate 19 22 17 Blood Pressure 88/48 77/47 O2 Sat by Pulse Oximetry 96 96 97 09/12/21 22:03 09/12/21 22:15 09/12/21 22:30 Temperature Pulse Rate 72 72 74 Respiratory Rate 16 23 24 Blood Pressure 84/46 88/44 O2 Sat by Pulse Oximetry 96 94 L 93 L 09/12/21 22:43 09/12/21 22:44 09/12/21 22:45 Temperature Pulse Rate 74 72 74 Respiratory Rate 17 16 35 H Blood Pressure 82/50 90/51 O2 Sat by Pulse Oximetry 97 97 96 09/12/21 22:56 09/12/21 23:00 09/12/21 23:15 Temperature Pulse Rate 71 74 73 Respiratory Rate 19 21 21 Blood Pressure 113/52 96/46 103/51 O2 Sat by Pulse Oximetry 96 95 96 09/12/21 23:30 09/12/21 23:45 09/13/21 00:00 Temperature Pulse Rate 71 72 72 Respiratory Rate 24 28 H 26 H Blood Pressure 88/49 93/46 91/49 O2 Sat by Pulse Oximetry 95 96 97 09/13/21 00:15 09/13/21 00:30 09/13/21 00:32 Temperature Pulse Rate 70 70 68 Respiratory Rate 33 H 27 H 25 H Blood Pressure 85/49 79/49 75/48 O2 Sat by Pulse Oximetry 97 96 96 09/13/21 00:34 09/13/21 00:45 09/13/21 01:00 Temperature Pulse Rate 70 69 69 Respiratory Rate 22 26 H 29 H Blood Pressure 93/50 92/55 97/52 O2 Sat by Pulse Oximetry 95 96 96 09/13/21 01:15 09/13/21 01:30 09/13/21 01:45 Temperature Pulse Rate 70 71 70 Respiratory Rate 27 H 26 H 36 H Blood Pressure 90/52 O2 Sat by Pulse Oximetry 97 96 97 09/13/21 01:57 09/13/21 02:00 09/13/21 02:01 Temperature Pulse Rate 68 71 72 Respiratory Rate 24 19 26 H Blood Pressure 99/59 91/57 O2 Sat by Pulse Oximetry 95 97 98 09/13/21 02:15 09/13/21 02:30 09/13/21 02:45 Temperature Pulse Rate 73 72 75 Respiratory Rate 21 14 26 H Blood Pressure 92/54 O2 Sat by Pulse Oximetry 96 98 97 09/13/21 02:59 09/13/21 03:00 09/13/21 03:15 Temperature Pulse Rate 71 72 74 Respiratory Rate 21 14 10 L Blood Pressure 89/53 O2 Sat by Pulse Oximetry 97 97 95 09/13/21 03:30 09/13/21 03:31 09/13/21 03:45 Temperature Pulse Rate 75 76 74 Respiratory Rate 21 22 24 Blood Pressure 117/57 O2 Sat by Pulse Oximetry 96 97 95 09/13/21 04:00 09/13/21 04:50 09/13/21 04:54 Temperature Pulse Rate 72 73 73 Respiratory Rate 16 13 Blood Pressure 90/56 103/56 O2 Sat by Pulse Oximetry 99 97 09/13/21 05:00 09/13/21 05:10 09/13/21 05:15 Temperature Pulse Rate 73 72 Respiratory Rate 18 15 15 Blood Pressure 95/55 O2 Sat by Pulse Oximetry 99 99 09/13/21 05:30 09/13/21 05:45 09/13/21 06:00 Temperature Pulse Rate 72 69 72 Respiratory Rate 20 0 L 23 Blood Pressure 88/49 O2 Sat by Pulse Oximetry 99 97 98 09/13/21 06:10 09/13/21 07:00 09/13/21 08:00 Temperature 98.2 F Pulse Rate 65 66 Respiratory Rate 15 26 H 22 Blood Pressure 80/47 94/55 O2 Sat by Pulse Oximetry 99 100 09/13/21 09:00 09/13/21 10:00 09/13/21 10:15 Temperature Pulse Rate 71 67 71 Respiratory Rate 23 17 22 Blood Pressure 95/53 93/51 O2 Sat by Pulse Oximetry 100 99 09/13/21 10:30 09/13/21 10:45 09/13/21 11:00 Temperature Pulse Rate 66 65 67 Respiratory Rate 21 31 H 27 H Blood Pressure 94/52 O2 Sat by Pulse Oximetry 99 98 100 09/13/21 11:15 09/13/21 11:30 09/13/21 11:35 Temperature Pulse Rate 63 63 80 Respiratory Rate 35 H 20 10 L Blood Pressure 141/76 O2 Sat by Pulse Oximetry 100 100 91 L 09/13/21 11:45 09/13/21 12:00 09/13/21 12:15 Temperature Pulse Rate 70 65 67 Respiratory Rate 29 H 33 H 35 H Blood Pressure 148/70 O2 Sat by Pulse Oximetry 99 99 92 L 09/13/21 12:30 09/13/21 12:45 09/13/21 13:00 Temperature Pulse Rate 66 69 70 Respiratory Rate 23 53 H 38 H Blood Pressure 152/89 O2 Sat by Pulse Oximetry 100 100 100 09/13/21 13:04 09/13/21 13:15 09/13/21 13:30 Temperature Pulse Rate 68 73 75 Respiratory Rate 26 H 26 H 21 Blood Pressure 86/48 O2 Sat by Pulse Oximetry 100 98 95 09/13/21 13:45 09/13/21 14:00 09/13/21 14:15 Temperature Pulse Rate 72 74 74 Respiratory Rate 22 25 H 23 Blood Pressure 84/52 O2 Sat by Pulse Oximetry 100 100 100 09/13/21 14:30 09/13/21 14:45 09/13/21 15:00 Temperature Pulse Rate 73 75 74 Respiratory Rate 19 36 H 27 H Blood Pressure O2 Sat by Pulse Oximetry 100 100 89 L 09/13/21 15:01 09/13/21 15:15 09/13/21 15:30 Temperature Pulse Rate 72 74 71 Respiratory Rate 39 H 53 H 33 H Blood Pressure 98/55 O2 Sat by Pulse Oximetry 97 98 93 L 09/13/21 15:50 09/13/21 16:00 09/13/21 16:15 Temperature 98.1 F Pulse Rate 71 68 68 Respiratory Rate 14 13 21 Blood Pressure 98/54 O2 Sat by Pulse Oximetry 100 97 09/13/21 16:30 09/13/21 16:45 09/13/21 17:00 Temperature Pulse Rate 69 67 67 Respiratory Rate 20 14 10 L Blood Pressure 100/56 O2 Sat by Pulse Oximetry 100 99 98 09/13/21 17:15 09/13/21 17:30 09/13/21 17:45 Temperature Pulse Rate 71 70 69 Respiratory Rate 13 25 H 19 Blood Pressure O2 Sat by Pulse Oximetry 09/13/21 18:00 09/13/21 18:11 09/13/21 18:15 Temperature Pulse Rate 69 66 67 Respiratory Rate 11 L 21 15 Blood Pressure 82/46 O2 Sat by Pulse Oximetry 100 100 09/13/21 18:30 09/13/21 18:45 09/13/21 19:00 Temperature Pulse Rate 68 71 72 Respiratory Rate 12 15 15 Blood Pressure 115/56 O2 Sat by Pulse Oximetry 100 100 99 09/13/21 19:15 09/13/21 19:30 09/13/21 19:45 Temperature Pulse Rate 75 75 75 Respiratory Rate 22 16 18 Blood Pressure O2 Sat by Pulse Oximetry 95 100 99 09/13/21 20:00 09/13/21 20:15 09/13/21 20:30 Temperature 97.6 F Pulse Rate 78 81 79 Respiratory Rate 20 24 10 L Blood Pressure 111/58 O2 Sat by Pulse Oximetry 99 100 09/13/21 20:45 09/13/21 21:00 09/13/21 21:15 Temperature Pulse Rate 77 79 80 Respiratory Rate 19 20 22 Blood Pressure 96/54 O2 Sat by Pulse Oximetry 100 100 99 09/13/21 21:30 09/13/21 21:45 09/13/21 22:00 Temperature Pulse Rate 81 82 78 Respiratory Rate 20 15 18 Blood Pressure 100/57 O2 Sat by Pulse Oximetry 100 100 99 09/13/21 22:15 09/13/21 22:30 09/13/21 22:45 Temperature Pulse Rate 75 75 75 Respiratory Rate 20 20 21 Blood Pressure O2 Sat by Pulse Oximetry 92 L 97 97 09/13/21 23:00 09/13/21 23:15 09/13/21 23:30 Temperature Pulse Rate 74 72 72 Respiratory Rate 20 21 21 Blood Pressure 100/58 O2 Sat by Pulse Oximetry 98 99 98 09/13/21 23:45 09/14/21 00:00 09/14/21 00:15 Temperature 97.9 F Pulse Rate 72 74 81 Respiratory Rate 21 15 20 Blood Pressure 95/53 O2 Sat by Pulse Oximetry 99 100 100 09/14/21 00:30 09/14/21 00:45 09/14/21 01:00 Temperature Pulse Rate 72 73 73 Respiratory Rate 20 21 20 Blood Pressure 100/59 O2 Sat by Pulse Oximetry 99 100 100 09/14/21 01:15 09/14/21 01:30 09/14/21 01:45 Temperature Pulse Rate 72 71 72 Respiratory Rate 21 21 22 Blood Pressure O2 Sat by Pulse Oximetry 99 98 98 09/14/21 02:00 09/14/21 02:15 09/14/21 02:30 Temperature Pulse Rate 82 75 73 Respiratory Rate 25 H 19 20 Blood Pressure 106/55 O2 Sat by Pulse Oximetry 94 L 99 98 09/14/21 02:45 09/14/21 03:00 09/14/21 04:00 Temperature 97.9 F Pulse Rate 77 79 75 Respiratory Rate 21 22 31 H Blood Pressure 90/55 94/50 O2 Sat by Pulse Oximetry 98 99 100 09/14/21 05:00 09/14/21 06:00 09/14/21 07:00 Temperature Pulse Rate 69 67 71 Respiratory Rate 23 21 16 Blood Pressure 99/56 112/56 117/58 O2 Sat by Pulse Oximetry 100 100 100 09/14/21 08:00 09/14/21 09:00 09/14/21 10:00 Temperature 98.2 F Pulse Rate 69 69 69 Respiratory Rate 20 17 37 H Blood Pressure 88/49 99/56 81/53 O2 Sat by Pulse Oximetry 99 100 99 09/14/21 11:00 09/14/21 12:00 09/14/21 13:00 Temperature Pulse Rate 65 63 68 Respiratory Rate 18 20 21 Blood Pressure 116/66 117/59 110/58 O2 Sat by Pulse Oximetry 100 100 99 09/14/21 14:00 09/14/21 15:00 09/14/21 16:00 Temperature 98.4 F Pulse Rate 71 63 63 Respiratory Rate 22 22 20 Blood Pressure 96/50 101/58 101/55 O2 Sat by Pulse Oximetry 100 100 100 09/14/21 17:00 09/14/21 18:00 09/14/21 19:00 Temperature 98.4 F Pulse Rate 68 69 68 Respiratory Rate 20 23 30 H Blood Pressure 102/59 111/62 104/51 O2 Sat by Pulse Oximetry 99 100 100 09/14/21 20:00 09/14/21 21:00 09/14/21 22:00 Temperature Pulse Rate 73 65 66 Respiratory Rate 20 28 H 31 H Blood Pressure 98/57 121/64 106/62 O2 Sat by Pulse Oximetry 98 99 98 09/14/21 23:00 09/15/21 00:00 09/15/21 01:00 Temperature 98.4 F Pulse Rate 66 66 74 Respiratory Rate 22 22 22 Blood Pressure 119/62 113/56 101/59 O2 Sat by Pulse Oximetry 96 96 95 09/15/21 02:00 09/15/21 03:00 09/15/21 04:00 Temperature Pulse Rate 65 62 64 Respiratory Rate 23 18 20 Blood Pressure 99/58 99/60 90/52 O2 Sat by Pulse Oximetry 96 99 98 09/15/21 05:00 09/15/21 05:02 09/15/21 05:15 Temperature 98.1 F Pulse Rate 66 63 65 Respiratory Rate 25 H 28 H 23 Blood Pressure 105/57 O2 Sat by Pulse Oximetry 97 99 98 09/15/21 05:30 09/15/21 05:45 09/15/21 06:00 Temperature 98.1 F Pulse Rate 68 64 66 Respiratory Rate 38 H 23 20 Blood Pressure 87/50 O2 Sat by Pulse Oximetry 98 97 98 09/15/21 06:07 09/15/21 06:08 09/15/21 06:15 Temperature Pulse Rate 68 68 65 Respiratory Rate 17 18 22 Blood Pressure 69/44 93/51 O2 Sat by Pulse Oximetry 99 98 98 09/15/21 06:30 09/15/21 06:45 09/15/21 07:00 Temperature Pulse Rate 66 68 67 Respiratory Rate 23 24 22 Blood Pressure 107/58 O2 Sat by Pulse Oximetry 98 98 98 09/15/21 07:15 09/15/21 07:30 09/15/21 08:09 Temperature Pulse Rate 66 69 70 Respiratory Rate 24 17 Blood Pressure O2 Sat by Pulse Oximetry 98 99 99 09/15/21 08:11 09/15/21 08:15 09/15/21 08:30 Temperature 97.8 F Pulse Rate 72 74 66 Respiratory Rate 23 19 26 H Blood Pressure 106/57 O2 Sat by Pulse Oximetry 100 100 100 09/15/21 08:45 09/15/21 09:00 09/15/21 09:15 Temperature Pulse Rate 67 66 66 Respiratory Rate 19 34 H 35 H Blood Pressure 106/61 O2 Sat by Pulse Oximetry 100 100 98 09/15/21 09:30 09/15/21 09:45 09/15/21 10:00 Temperature Pulse Rate 69 64 69 Respiratory Rate 19 22 29 H Blood Pressure 94/56 O2 Sat by Pulse Oximetry 100 100 100 09/15/21 10:15 09/15/21 10:30 09/15/21 10:45 Temperature Pulse Rate 68 65 65 Respiratory Rate 18 19 27 H Blood Pressure O2 Sat by Pulse Oximetry 100 100 97 09/15/21 11:00 09/15/21 11:15 09/15/21 11:30 Temperature Pulse Rate 65 69 66 Respiratory Rate 18 38 H 34 H Blood Pressure 102/62 O2 Sat by Pulse Oximetry 100 100 99 09/15/21 11:45 09/15/21 12:00 09/15/21 12:15 Temperature 98.3 F Pulse Rate 68 64 66 Respiratory Rate 20 20 19 Blood Pressure 122/70 O2 Sat by Pulse Oximetry 98 97 95 09/15/21 12:30 09/15/21 12:45 09/15/21 13:00 Temperature Pulse Rate 72 65 64 Respiratory Rate 23 19 18 Blood Pressure 111/66 O2 Sat by Pulse Oximetry 100 100 100 09/15/21 13:15 09/15/21 13:30 09/15/21 13:45 Temperature Pulse Rate 68 68 69 Respiratory Rate 20 22 21 Blood Pressure O2 Sat by Pulse Oximetry 92 L 95 93 L 09/15/21 14:00 09/15/21 14:01 09/15/21 14:15 Temperature Pulse Rate 68 69 68 Respiratory Rate 22 21 25 H Blood Pressure 96/52 O2 Sat by Pulse Oximetry 100 99 97 09/15/21 14:30 09/15/21 14:45 09/15/21 15:00 Temperature Pulse Rate 64 65 64 Respiratory Rate 32 H 20 21 Blood Pressure O2 Sat by Pulse Oximetry 97 95 97 Labs: Laboratory Last Values WBC 4.2 X10^3/uL (3.6-10.0) 09/15/21 04:23 RBC 2.66 X10^6/uL (4.7-6.0) L 09/15/21 04:23 Hgb 9.1 g/dL (13.5-18.0) L 09/15/21 15:11 Hct 25.5 % (42.0-54.0) L 09/15/21 15:11 MCV 90.8 fL (80.0-100.0) 09/15/21 04:23 MCH 31.8 pg (27.0-34.0) 09/15/21 04:23 MCHC 35.0 g/dL (33.0-35.0) 09/15/21 04:23 RDW 16.2 % (11.6-16.5) 09/15/21 04:23 Plt Count 93 X10^3/uL (150.0-450.0) L 09/15/21 04:23 MPV 10.6 fL (7.4-11.0) 09/15/21 04:23 Neut % (Auto) 69.7 % (42.0-75.0) 09/15/21 04:23 Lymph % (Auto) 14.2 % (21.0-51.0) L 09/15/21 04:23 Craig % (Auto) 11.4 % (0.0-13.0) 09/15/21 04:23 Eos % (Auto) 3.9 % (0.9-2.9) H 09/15/21 04:23 Baso % (Auto) 0.8 % (0.2-1.0) 09/15/21 04:23 Neut # (Auto) 2.9 x10^3/uL (2.2-4.8) 09/15/21 04:23 Lymph # (Auto) 0.6 X10^3/uL (1.3-2.9) L 09/15/21 04:23 Craig # (Auto) 0.5 x10^3/uL (0.3-0.8) 09/15/21 04:23 Eos # (Auto) 0.2 x10^3/uL (0.0-0.2) 09/15/21 04:23 Baso # (Auto) 0.0 X10^3/uL (0.0-0.1) 09/15/21 04:23 Absolute Nucleated RBC 0.2 /100WBC 09/15/21 04:23 PT 14.6 SECONDS (11.8-14.3) 09/12/21 10:59 INR Target Range - 09/12/21 10:59 INR 1.19 (0.8-1.3) 09/12/21 10:59 APTT 32.3 SECONDS (22.9-36.5) 09/12/21 10:59 PTT Comment - 09/12/21 10:59 Sodium 144 mmol/L (136-145) 09/15/21 04:23 Corrected Sodium TNP 09/15/21 04:23 Potassium 3.4 mmol/L (3.5-5.1) L 09/15/21 04:23 Chloride 108 mmol/L (98-107) H 09/15/21 04:23 Carbon Dioxide 31.0 mmol/L (21-32) 09/15/21 04:23 BUN 6 mg/dL (7-18) L 09/15/21 04:23 Creatinine 1.02 mg/dL (0.70-1.30) 09/15/21 04:23 Est GFR (MDRD) Af Amer > 60 (>60) 09/15/21 04:23 Est GFR (MDRD) Non-Af > 60 (>60) 09/15/21 04:23 Glucose 83 mg/dL (65-99) 09/15/21 04:23 Calcium 7.4 mg/dL (8.5-10.1) L 09/15/21 04:23 Corrected Calcium 8.4 mg/dL (8.5-10.1) L 09/15/21 04:23 Magnesium 1.7 mg/dL (1.7-2.9) 09/15/21 04:23 Iron 52 ug/dL (50-175) 09/14/21 04:31 Transferrin 155 mg/dL (202-364) L 09/14/21 04:31 Ferritin 75 ng/mL (26-388) 09/14/21 04:31 Total Bilirubin 0.50 mg/dL (0.2-1.0) 09/15/21 04:23 AST 18 Units/L (15-37) 09/15/21 04:23 ALT 20 Units/L (12-78) 09/15/21 04:23 Alkaline Phosphatase 52 Units/L (46-116) 09/15/21 04:23 Total Protein 4.4 g/dL (6.4-8.2) L 09/15/21 04:23 Albumin 2.7 g/dL (3.4-5.0) L 09/15/21 04:23 Globulin 1.7 g/dL (2.5-4.5) L 09/15/21 04:23 Albumin/Globulin Ratio 1.6 Ratio (1.1-2.1) 09/15/21 04:23 Vitamin B12 265 pg/mL (193-986) 09/14/21 04:31 Folate 13.8 ng/mL (>8.6) 09/14/21 04:31 Stool Description Fob tube 09/12/21 11:50 Stl Occult Blood (IFOB) Positive (NEGATIVE) A 09/12/21 11:50 SARS CoV-2 RNA Rapid JANNETH Positive (NEGATIVE) A 09/12/21 13:50 Blood Type A POSITIVE 09/12/21 14:19 Antibody Screen Negative 09/12/21 14:19 Crossmatch See Detail 09/12/21 14:19 Reason For Visit: RECTAL BLEEDING Discharge Date Discharge Date: 09/15/21 Discharge Diagnosis All Active Problems (Updated 09/29/21 @ 09:16 by Vanna Burns) Acute blood loss anemia (Acute) Dehydration (Acute) Bladder cancer (Chronic) CAD (coronary artery disease) (Chronic) HLD (hyperlipidemia) (Chronic) Generalized weakness (Acute) ELBERT (acute kidney injury) (Acute) Gastrointestinal bleeding, lower (Acute) Hypotension (Acute) Plan of Treatment: Continue with present treatment and follow up plan. Pt is to keep follow up appointment as instructed and take medications as ordered. Discharge Medications Discharge Medications: No Known Drug Allergies Allergy (Verified 09/12/21 20:54) CONTINUE taking the following medications Horizant 300 mg PO BID 09/12/21 [History] atorvastatin 80 mg PO HS 09/12/21 [History] carvedilol 6.25 mg PO BID 09/12/21 [History] clonazepam 1.5 mg PO HS 09/12/21 [History] levetiracetam 1,000 mg PO BID 09/12/21 [History] levothyroxine 25 mcg PO DAILY 09/12/21 [History] methotrexate sodium 25 mg PO WEEKLY 09/12/21 [History] omeprazole 20 mg PO DAILY 09/12/21 [History] venlafaxine 75 mg PO DAILY 09/12/21 [History] Follow up and Referral Follow Up: 3 Days (PCP) Discharge Disposition Discharge Disposition: Home Discharge Condition: Stable Discharge Plan Discharge Plan Hospital Course: Mr Morales is a 61y/o male with a hx of CAD, PCI, bladder cancer, Oropharyngeal cancer, HTN, HLD and Psoriatic arthritis presented with blood in his stool. He had a colonoscopy on 09/11/[address] Du. He was found to have internal hemorrrhoids and polyp. Patietn states he started having bloody BMs later that night. He came to the ER the next morning. He denies abdominal pain, nausea or vomiting. He denies fever or chills. He had 2 bloody stools this AM. Patient is on Brilinta and asa, reports stopping it 4 days prior to procedure. He is fully vaccinated for Covid-19. No prev hx of infection. In the ER, Hgb was 12.9. Patient was found to be COVID +. Dr Du was consulted and recommended to monitor H/H and transfuse as needed. Patient was admitted in ICU due to positive COVID test. He did not have any respiratory symptoms. He was started on gentle hydration and IV protonix. His H/H was monitored closely. He received 2 units of PRBCs. His diet was advanced as tolerated. His home meds asa and brilinta were held. CTAP was also done which did not show any acute process. His BM's did slow down and eventually stop. He was not having any more active bleeding. He was tolerating PO intake, ambulating in the room. He was ready for discharge. His Hgb prior to discharge was 9.1. He will f/u with GI and PCP as scheduled. He will continues to hold asa and brilinta for total of 2 weeks. Patient Disposition: 01 HOME, SELF-CARE Condition: Stable Health Concerns: Post Hospitalization: new medications and changes needed to prevent readmission or further decline. Pt educated and given instructions on all concerns. Care Plan Goals: Problem: Pain/Alteration in Comfort Goal: Improve/ Resolve Pain; Achieve Pain Tolerance Instructions: Take pain medications as prescribed. Contact your primary care provider if your pain is unrelieved or worsens. Follow up with primary care provider as directed. Plan of Treatment: Continue with present treatment and follow up plan. Pt is to keep follow up appointment as instructed and take medications as ordered. Prescription drug monitoring program results: PDMP reviewed and no concerns identified Prescriptions: Continued folic acid 1 MG tablet 1 mg PO DAILY RF: 0 Neupro 3 MG/24 HR patch 24 hour 3 mg PATCH DAILY RF: 0 Hydroxychloroquine Sulfate [Hydroxychloroquine Sulfat] 200 MG Tab 400 mg PO DAILY RF: 0 carvedilol 6.25 mg tablet 6.25 mg PO BID RF: 0 levetiracetam 500 mg tablet 1,000 mg PO BID RF: 0 clonazepam 1 mg tablet 1.5 mg PO HS RF: 0 levothyroxine 25 mcg tablet 25 mcg PO DAILY RF: 0 omeprazole 20 mg capsule,delayed release(DR/EC) 20 mg PO DAILY RF: 0 atorvastatin 80 mg tablet 80 mg PO HS RF: 0 venlafaxine 75 mg tablet 75 mg PO DAILY RF: 0 methotrexate sodium 2.5 mg tablet 25 mg PO WEEKLY RF: 0 Horizant 300 mg tablet extended release 300 mg PO BID RF: 0 Discontinued aspirin 81 mg tablet,chewable 81 mg PO DAILY RF: 0 Brilinta 60 mg tablet 60 mg PO BID RF: 0 Orders to Discharge Patient Discharge Orders: Discharge (Routine); Ordered 09/15/21 Ordered By: Vanna Burns Follow ups/Referrals Follow ups/Referrals: FIGUEROA DU [STAFF PHYSICIAN] - 09/30/21 2:10 pm Instructions Instructions: Anemia, Dehydration, Adult, [id number], Rehydration, Adult, Weakness, [id number], Gastrointestinal Bleeding, [id number], Dehydration, Adult Activity Restrictions/Additional Instructions: Follow up with primary care later this week to repeat Hemoglobin and platelets Start taking Carvedilol on 09/16/21. Check blood pressure prior to taking medicine, if blood pressure below 90/60 then let primary care doctor know Stop taking aspirin and Brilinta for now, can start taking it on 09/27/21 Stand Alone Forms: Excuse From Work or School, Precautions for COVID19, [facility], Patient Portal, Social Distancing
== END 2021-09-15 16:10 | disposition home or self-care (01) ==
LOC: ER 10:37 → ICU 10:37
PROVIDERS: ADMIT Internal Medicine; ATTEND Internal Medicine
DX: D62 Acute posthemorrhagic anemia; I10 Essential (primary) hypertension; E78.5 Hyperlipidemia, unspecified; K92.2 Gastrointestinal hemorrhage, unspecified; U07.1 COVID-19; Z79.899 Other long term (current) drug therapy; I95.89 Other hypotension; R53.1 Weakness; Z85.818 Personal history of malignant neoplasm of other sites of lip, oral cavity, and pharynx; I25.10 Atherosclerotic heart disease of native coronary artery without angina pectoris; Z85.51 Personal history of malignant neoplasm of bladder; E86.0 Dehydration; N17.8 Other acute kidney failure